=== PATIENT | female | born 1935 | race Caucasian/White ===

== ENCOUNTER → 2020-10-27 | Outpatient (CLI) | payer OTHER ==
[~2020-10-27] MED LIST: ASPIRIN EC81 MG PO; METFORMIN HCL1000 MG PO
== END ==
LOC: US 13:03
DX: N28.1 Cyst of kidney, acquired (principal); R17 Unspecified jaundice; Z79.899 Other long term (current) drug therapy; Z79.82 Long term (current) use of aspirin; Z79.2 Long term (current) use of antibiotics; Z79.84 Long term (current) use of oral hypoglycemic drugs

== ENCOUNTER 2021-03-17 16:07 | Inpatient (IN) | payer OTHER ==
[~2021-03-17] VITALS: Ht 160 cm; Wt 77.1 kg
[2021-03-17 17:40] LABS: HEMOGLOBIN 11.4 gm/dl (12.3-15.3); RED BLOOD COUNT 3.86 M/UL (4.00-5.10)
[2021-03-17 18:01] LABS: BUN/CREATININE RATIO 11 (0-10)
[2021-03-18] MEDS ORDERED: OMNICEF 300 MG300 MG PO (04:30)
[2021-03-18] MEDS ORDERED: LEVOTHYROXINE25 MCG PO (04:30)
[2021-03-18] MEDS ORDERED: CELEXA 20MG TAB20 MG PO (04:31)
[2021-03-18] MEDS ORDERED: AMLODIPINE BES2.5 MG PO (04:31)
[2021-03-18] MEDS ORDERED: GABAPENTIN100 MG PO (04:31)
[2021-03-18] MEDS ORDERED: GLIPIZIDE ER5 MG PO (04:31)
[2021-03-18] MEDS ORDERED: GLUCOPHAGE XR500 M1 PO (04:32)
[2021-03-18] MEDS ORDERED: LISINOPRIL20 MG PO (04:32)
[2021-03-18] MEDS ORDERED: PRAVASTATIN SOD80 MG PO (04:32)
[2021-03-18] MEDS ORDERED: ZEBETA 5 MG TAB5 MG PO (04:32)
[2021-03-18] MEDS ORDERED: PROVENTIL HFA6.7 GM INH (04:32)
[2021-03-18 07:03] LABS: HEMOGLOBIN 11.3 gm/dl (12.3-15.3); RED BLOOD COUNT 3.93 M/UL (4.00-5.10)
[2021-03-18 07:13] LABS: WHITE BLOOD COUNT 4.2 K/UL (4.5-11.0)
[2021-03-19 09:40] LABS: HEMOGLOBIN 12.6 gm/dl (12.3-15.3)
[2021-03-19 09:44] LABS: RED BLOOD COUNT 4.33 M/UL (4.00-5.10); WHITE BLOOD COUNT 10.3 K/UL (4.5-11.0)
[2021-03-23 07:10] LABS: HEMOGLOBIN 13.2 gm/dl (12.3-15.3); RED BLOOD COUNT 4.59 M/UL (4.00-5.10); WHITE BLOOD COUNT 8.7 K/UL (4.5-11.0)
[2021-03-26 06:10] LABS: HEMOGLOBIN 13.1 gm/dl (12.3-15.3); RED BLOOD COUNT 4.56 M/UL (4.00-5.10); WHITE BLOOD COUNT 10.9 K/UL (4.5-11.0)
--- NOTE | 2021-03-26 11:52 | NUR ---
1115 02 Sat 87% on room air.
== END 2021-03-26 16:34 | disposition home health service (06) | DRG 177 ==
LOC: ER1 16:07 → CDU 18:33 → MED SURG 4 18:33
PROVIDERS: Internal Medicine Infectious Disease; Nurse Practitioner; ADMIT Internal Medicine
PROC: 8E0ZXY6 Isolation (ICD-10-PCS; 2021-03-17)
PROC: 3E0333Z Introduction of Anti-inflammatory into Peripheral Vein, Percutaneous Approach (ICD-10-PCS; 2021-03-17)
PROC: XW033E5 Introduction of Remdesivir Anti-infective into Peripheral Vein, Percutaneous Approach, New Technology Group 5 (ICD-10-PCS; 2021-03-17)
PROC: B24BZZZ Ultrasonography of Heart with Aorta (ICD-10-PCS; principal; 2021-03-23)
DX: U07.1 COVID-19 (principal); J12.82 Pneumonia due to coronavirus disease 2019; J96.01 Acute respiratory failure with hypoxia; I50.33 Acute on chronic diastolic (congestive) heart failure; A08.39 Other viral enteritis; N17.9 Acute kidney failure, unspecified; I13.0 Hypertensive heart and chronic kidney disease with heart failure and stage 1 through stage 4 chronic kidney disease, or unspecified chronic kidney disease; E87.6 Hypokalemia; E11.22 Type 2 diabetes mellitus with diabetic chronic kidney disease; I44.7 Left bundle-branch block, unspecified; N18.30 Chronic kidney disease, stage 3 unspecified; E11.65 Type 2 diabetes mellitus with hyperglycemia; R53.81 Other malaise; Z85.43 Personal history of malignant neoplasm of ovary; Z88.7 Allergy status to serum and vaccine; Z88.8 Allergy status to other drugs, medicaments and biological substances; Z79.4 Long term (current) use of insulin; Z79.82 Long term (current) use of aspirin; Z90.49 Acquired absence of other specified parts of digestive tract; Z88.2 Allergy status to sulfonamides
CPT/HCPCS: ECHO; 0240U; 36415; 36600; 71045; 80048; 80053; 82550; 82553; 82803; 82962; 83036; 83605; 83735; 83874; 83880; 84484; 85025; 85379; 85610; 85652; 85730; 86140; 87040; 93005; 93306; 94640; 94664; 94760; 96374; 97110; 97116; 97116-GP-CQ; 97161; 99285; J0696; J1100; J1650; J1940; J2405; J3475; J7030; Q9967

== ENCOUNTER → 2021-06-06 | Outpatient (CLI) | payer OTHER ==
[~2021-06-06] MED LIST changes: +AMLODIPINE BES2.5 MG PO; +CELEXA 20MG TAB20 MG PO; +GABAPENTIN100 MG PO; +GLIPIZIDE ER5 MG PO; +GLUCOPHAGE XR500 M1 PO; +LEVOTHYROXINE25 MCG PO; +LISINOPRIL20 MG PO; +OMNICEF 300 MG300 MG PO; +PRAVASTATIN SOD80 MG PO; +PROVENTIL HFA6.7 GM INH; +ZEBETA 5 MG TAB5 MG PO
== END ==
LOC: US 13:59
DX: N18.2 Chronic kidney disease, stage 2 (mild) (principal); N28.1 Cyst of kidney, acquired

== ENCOUNTER → 2021-06-27 | Outpatient (CLI) | payer OTHER | LOC: LAB 12:22 | PROVIDERS: Internal Medicine Nephrology | DX: N18.2 Chronic kidney disease, stage 2 (mild) (principal); E55.9 Vitamin D deficiency, unspecified; E87.6 Hypokalemia | CPT/HCPCS: 36415; 80053; 82570; 83735; 84156 ==

== ENCOUNTER 2021-08-23 02:11 | Inpatient (IN) | payer OTHER ==
[~2021-08-23] VITALS: Ht 160 cm; Wt 77.1 kg
[~2021-08-23 02:11] MED LIST changes: -METFORMIN HCL1000 MG PO; +METFORMIN HCL500 M2 PO
[2021-08-23 03:42] LABS: HEMOGLOBIN 11.1 gm/dl (12.3-15.3); RED BLOOD COUNT 3.84 M/UL (4.00-5.10); WHITE BLOOD COUNT 12.2 K/UL (4.5-11.0)
[2021-08-23] MEDS ORDERED: AMOX TR-K CLV1 EAC4 PO (09:51)
[2021-08-23] MEDS ORDERED: GABAPENTIN100 MG PO (09:52)
[2021-08-23] MEDS ORDERED: FUROSEMIDE20 MG PO (09:52)
[2021-08-23] MEDS ORDERED: POTASSIUM CHLO10 ME1 PO (09:53)
[2021-08-23] MEDS ORDERED: TYLENOL EXTRA500 MG PO (09:53)
[2021-08-23] MEDS ORDERED: IMODIUM CAP 2 MG2 MG PO (09:53)
--- NOTE | 2021-08-23 16:32 | NUR ---
i have notified dr. mccurdy twice r/t patient home medications reconcillation. he stated he is aware about it the first time
[2021-08-24] MEDS ORDERED: COLCHICINE 0.60.6 MG PO (12:05)
[2021-08-24] MEDS ORDERED: ELIQUIS 2.5 MG2.5 MG PO (12:05)
== END 2021-08-24 13:44 | disposition home or self-care (01) | DRG 291 ==
LOC: ER1 02:11 → CDU 05:19 → MED SURG 4 09:31
PROVIDERS: Family Medicine; ADMIT Internal Medicine
DX: I13.0 Hypertensive heart and chronic kidney disease with heart failure and stage 1 through stage 4 chronic kidney disease, or unspecified chronic kidney disease (principal); I50.43 Acute on chronic combined systolic (congestive) and diastolic (congestive) heart failure; E44.0 Moderate protein-calorie malnutrition; J96.11 Chronic respiratory failure with hypoxia; E87.2 Acidosis; N30.00 Acute cystitis without hematuria; I48.91 Unspecified atrial fibrillation; M10.9 Gout, unspecified; Z20.822 Contact with and (suspected) exposure to COVID-19; Z66 Do not resuscitate; N18.30 Chronic kidney disease, stage 3 unspecified; I44.7 Left bundle-branch block, unspecified; E03.9 Hypothyroidism, unspecified; I48.0 Paroxysmal atrial fibrillation; E11.22 Type 2 diabetes mellitus with diabetic chronic kidney disease; Z86.16 Personal history of COVID-19; Z99.81 Dependence on supplemental oxygen; Z83.3 Family history of diabetes mellitus; Z85.43 Personal history of malignant neoplasm of ovary; Z82.49 Family history of ischemic heart disease and other diseases of the circulatory system
CPT/HCPCS: 0240U; 36415; 36600; 71045; 73620; 80053; 80061; 81001; 82550; 82553; 82803; 82962; 83036; 83605; 83735; 83880; 84100; 84439; 84443; 84484; 84550; 85025; 86140; 93005; 94760; 97161; 97165; J0696; J1650; J1940; J3475

== ENCOUNTER → 2021-11-07 | Outpatient (CLI) | payer OTHER ==
[~2021-11-07] MED LIST changes: +AMOX TR-K CLV1 EAC4 PO; +COLCHICINE 0.60.6 MG PO; +ELIQUIS 2.5 MG2.5 MG PO; +FUROSEMIDE20 MG PO; +IMODIUM CAP 2 MG2 MG PO; +POTASSIUM CHLO10 ME1 PO; +TYLENOL EXTRA500 MG PO
== END ==
LOC: LAB 11:26
PROVIDERS: Internal Medicine Nephrology
DX: N18.2 Chronic kidney disease, stage 2 (mild) (principal)
CPT/HCPCS: 36415; 80053; 82570; 84156

== ENCOUNTER → 2021-12-12 | Outpatient (CLI) | payer OTHER | LOC: LAB 11:42 | PROVIDERS: Internal Medicine Nephrology | DX: N18.2 Chronic kidney disease, stage 2 (mild) (principal) | CPT/HCPCS: 36415; 80048 ==